=== PATIENT | female | born 1975 | race Caucasian/White ===

== ENCOUNTER 2024-03-12 18:21 | Emergency (ER) | payer BC, OTHER ==
[~2024-03-12] VITALS: Ht 160 cm; Wt 90.7 kg
[~2024-03-12 18:21] MED LIST: PRENATAL MULTIVITAMIN PO
[2024-03-12 18:36] VITALS: BP_SYST 140; PULSE 90; RESP 15; TEMP 98.3; O2SAT 98
[2024-03-12 18:48] VITALS: BP_SYST 140; PULSE 90; RESP 15; TEMP 98.3; O2SAT 98
[2024-03-12] MEDS ORDERED: NEOM28.36 TP (18:50)
[2024-03-12] MEDS ORDERED: TRIA15CR3 TP (18:50)
== END 2024-03-12 18:54 | disposition home or self-care (01) ==
LOC: SED 18:21
DX: L25.9 Unspecified contact dermatitis, unspecified cause (principal); Z79.899 Other long term (current) drug therapy
CPT/HCPCS: 99283